=== PATIENT | female | born 1985 | race Two or more races ===

== ENCOUNTER 2019-03-14 21:56 | Inpatient (IN) | payer BC, OTHER ==
[~2019-03-14] VITALS: Ht 154.9 cm; Wt 75.3 kg
[2019-03-14] MEDS ORDERED: MORPHINE SULFATE INJ 4 MG/ML DISP.SYRIN ONE (23:16)
[2019-03-14] MEDS ORDERED: ONDANSETRON HCL/PF 4 MG/2 ML VIAL ONE (23:16)
[2019-03-14 23:21] LABS: BASOPHILS # (AUTO) 0.1 /CMM (0.0-0.2); BASOPHILS % (AUTO) 0.6 % (0.0-2.0); HEMATOCRIT 39 % (33-45); HEMOGLOBIN 13.2 g/dL (11.5-14.8); LYMPHOCYTES # (AUTO) 1.1 /CMM (0.8-4.8); LYMPHOCYTES % (AUTO) 12.3 % (20.0-44.0); MEAN CORPUSCULAR HGB CONC 34 g/dl (31.0-36.0); MEAN CORPUSCULAR VOLUME 91 fL (82-100); MONOCYTES # (AUTO) 1.2 /CMM (0.1-1.30); MONOCYTES % (AUTO) 13.5 % (2.0-12.0); NEUTROPHILS # (AUTO) 6.4 /CMM (1.8-8.9); NEUTROPHILS % (AUTO) 72.6 % (43.0-81.0); PLATELET COUNT (AUTO) 242 /CMM (150-450); RED BLOOD CELL COUNT(AUTO) 4.26 MIL/uL (4.0-5.2); WHITE BLOOD COUNT (AUTO) 8.8 K/uL (4.3-11.0)
[2019-03-14] MEDS ORDERED: ONDANSETRON HCL/PF 4 MG/2 ML VIAL IVP ONE (23:30)
[2019-03-14] MEDS ORDERED: IV NS 0.9% 1,000 ML BAG IV ONE (23:30)
[2019-03-14] MEDS ORDERED: MORPHINE SULFATE INJ 2 MG/ML DISP.SYRIN IV ONE (23:30)
[2019-03-14 23:34] LABS: ALBUMIN 3.7 g/dL (3.4-5.0); BILIRUBIN,TOTAL 0.3 mg/dL (0.2-1.0); CALCIUM, SERUM 8.8 mg/dL (8.5-10.1); CREATININE 0.6 mg/dL (0.6-1.3); TOTAL PROTEIN, SERUM 7.3 g/dL (6.4-8.2)
[2019-03-15 00:05] LABS: APPEARANCE,URINE Clear (CLEAR); BILIRUBIN,URINE Negative (NEGATIVE); BLOOD, URINE Trace-lysed Ery/uL (NEGATIVE); COLOR,URINE Yellow (YELLOW); KETONES,URINE Negative (NEGATIVE); LEUKOCYTE ESTERASE ,URINE Negative (NEGATIVE); NITRITE, URINE Negative (NEGATIVE); PROTEIN,URINE Negative (NEGATIVE); UGLUCOSE Negative (NEGATIVE); UROBILINOGEN,URINE 0.2 EU/dL (0.2)
[2019-03-15] MEDS ORDERED: KETOROLAC TROMETHAMINE INJ 30 MG/ML VIAL IV ONE (00:30)
[2019-03-15] MEDS ORDERED: KETOROLAC TROMETHAMINE INJ 60 MG/2 ML VIAL IM ONE (00:34)
[2019-03-15 00:49] LABS: BACTERIA,URINE Moderate /HPF (None Seen); SQUAMOUS EPITHELIAL CELL,UR Few /HPF (None Seen)
[2019-03-15] MEDS ORDERED: PIPERACILLIN /TAZOBACTAM 3.375 G in IV D5W 50 ML IV ONE (02:30)
[2019-03-15] MEDS ORDERED: PIPERACILLIN /TAZOBACTAM 3.375 G VIAL IV ONE (03:01)
[2019-03-15] MEDS ORDERED: MORPHINE SULFATE INJ 2 MG/ML DISP.SYRIN IV PRN (06:30)
[2019-03-15] MEDS ORDERED: ACETAMINOPHEN 325 MG TABLET PO PRN (06:30)
[2019-03-15] MEDS ORDERED: IV 1/2NS 1000 ML 1,000 ML IV PRN (06:30)
[2019-03-15] MEDS ORDERED: ONDANSETRON HCL/PF 4 MG/2 ML VIAL IVP PRN (06:30)
[2019-03-15] MEDS: PANTOPRAZOLE 40 MG TABLET.DR PO SCH (07:56)
[2019-03-15 08:00] VITALS: BP 108/64
[2019-03-15] MEDS ORDERED: PIPERACILLIN /TAZOBACTAM 3.375 G in IV D5W 50 ML IV SCH (12:00)
[2019-03-15 16:00] VITALS: BP 105/64
[2019-03-15] MEDS: PIPERACILLIN /TAZOBACTAM 3.375 G in IV D5W 100 ML IV SCH (17:37)
[2019-03-15 19:34] VITALS: BP 116/62
[2019-03-16] MEDS: PIPERACILLIN /TAZOBACTAM 3.375 G in IV D5W 100 ML IV SCH ×2 (00:57→09:44)
[2019-03-16] MEDS: PANTOPRAZOLE 40 MG TABLET.DR PO SCH (07:34)
[2019-03-16 08:00] VITALS: BP 112/69
[2019-03-16] MEDS ORDERED: CIPR500S3 PO (10:41)
[2019-03-16] MEDS ORDERED: METR500T PO (10:41)
[2019-03-16] MEDS ORDERED: ACET325T53 PO (10:42)
== END 2019-03-16 16:15 | disposition home or self-care (01) | DRG 392 ==
LOC: ER 22:02 → MEDSG2 03-15 02:48
DX: K57.92 Diverticulitis of intestine, part unspecified, without perforation or abscess without bleeding (principal); J98.11 Atelectasis; N13.30 Unspecified hydronephrosis
CPT/HCPCS: 36415; 76856-TC; 80048-TC; 80076-TC; 81000-TC; 83690-TC; 84703-TC; 85025-TC; 87040-TC; 87081-TC; 87086-TC; G0378; J1885; J2270; J2405; J2543; J3490; J7030; J7060

== ENCOUNTER 2020-09-17 16:14 | Emergency (ER) | payer BC, OTHER ==
[~2020-09-17] VITALS: Ht 162.6 cm; Wt 49.9 kg
[~2020-09-17 16:14] MED LIST: ACET325T53 PO; CIPR500S3 PO; METR500T PO
[2020-09-17 17:26] LABS: BILIRUBIN,URINE Negative (NEGATIVE); COLOR,URINE YELLOW (YELLOW); LEUKOCYTE ESTERASE ,URINE Negative (NEGATIVE); NITRITE, URINE Negative (NEGATIVE); PH,URINE 5.5 (5.0-8.0); PROTEIN,URINE Negative (NEGATIVE); UGLUCOSE Negative (NEGATIVE); UROBILINOGEN,URINE 0.2 EU/dL (0.2)
[2020-09-17] MEDS ORDERED: PANTOPRAZOLE 40 MG TABLET.DR PO ONE ×2 (17:30→17:31)
[2020-09-17 17:33] LABS: BACTERIA,URINE Moderate /HPF (None Seen); SQUAMOUS EPITHELIAL CELL,UR Few /HPF (None Seen)
[2020-09-17 17:34] LABS: BASOPHILS # (AUTO) 0.1 /CMM (0.0-0.2); BASOPHILS % (AUTO) 0.7 % (0.0-2.0); EOSINOPHILS % (AUTO) 0.8 % (0.0-6.0); HEMATOCRIT 39 % (33-45); HEMOGLOBIN 13.1 g/dL (11.5-14.8); LYMPHOCYTES # (AUTO) 1.4 /CMM (0.8-4.8); MEAN CORPUSCULAR HGB CONC 34 g/dl (31.0-36.0); MEAN CORPUSCULAR VOLUME 93 fL (82-100); MONOCYTES # (AUTO) 0.7 /CMM (0.1-1.30); MONOCYTES % (AUTO) 8.8 % (2.0-12.0); NEUTROPHILS # (AUTO) 5.4 /CMM (1.8-8.9); NEUTROPHILS % (AUTO) 70.7 % (43.0-81.0); PLATELET COUNT (AUTO) 222 /CMM (150-450); RED BLOOD CELL COUNT(AUTO) 4.19 MIL/uL (4.0-5.2); WHITE BLOOD COUNT (AUTO) 7.6 K/uL (4.3-11.0)
[2020-09-17 17:41] LABS: CALCIUM, SERUM 8.9 mg/dL (8.5-10.1); CREATININE 0.7 mg/dL (0.6-1.3)
[2020-09-17 17:47] LABS: ALBUMIN 3.9 g/dL (3.4-5.0); BILIRUBIN,DIRECT 0.1 mg/dL (0.0-0.2); BILIRUBIN,TOTAL 0.3 mg/dL (0.2-1.0); TOTAL PROTEIN, SERUM 7.7 g/dL (6.4-8.2)
--- NOTE | 2020-09-17 18:30 | NUR ---
Patient discharged to home in stable condition. Written and verbal after care instructions given. Patient verbalizes understanding of instruction.
[2020-09-17 18:31] VITALS: BP 131/82
== END 2020-09-17 18:31 | disposition home or self-care (01) ==
LOC: ER 16:16
DX: R10.13 Epigastric pain (principal); F17.200 Nicotine dependence, unspecified, uncomplicated; Z79.899 Other long term (current) drug therapy
CPT/HCPCS: 36415; 76705-TC; 80048-TC; 80076-TC; 81001; 83690-TC; 84703-TC; 85025-TC; 87086-TC

== ENCOUNTER 2021-02-20 14:57 | Emergency (ER) | payer BC ==
[~2021-02-20] VITALS: Ht 167.6 cm; Wt 86.2 kg
--- NOTE | 2021-02-20 15:35 | NUR ---
BIBS FROM HOME TO ER BED 6. AAOX4. NOT IN RESP DISTRESS. AMBULATORY. CAME IN FOR RUQ ABD PAIN STARTED YESTERDAY. RATES PAIN 5/10 PT ALSO REPORTS NAUSEA. PROVIDER WAS AT THE BEDSIDE FOR EVAL. ORDERS RECEIVED, NOTED AND CARRIED OUT.
[2021-02-20] MEDS ORDERED: ONDANSETRON HCL/PF 4 MG/2 ML VIAL ONE (15:47)
[2021-02-20] MEDS ORDERED: MORPHINE SULFATE INJ 4 MG/ML DISP.SYRIN ONE (15:47)
[2021-02-20] MEDS ORDERED: ONDANSETRON HCL/PF 4 MG/2 ML VIAL IVP ONE (16:00)
[2021-02-20] MEDS ORDERED: IV NS 0.9% 1,000 ML BAG IV ONE (16:00)
[2021-02-20] MEDS ORDERED: MORPHINE SULFATE INJ 2 MG/ML DISP.SYRIN IV ONE (16:00)
[2021-02-20 16:16] LABS: BASOPHILS # (AUTO) 0.1 /CMM (0.0-0.2); BASOPHILS % (AUTO) 0.8 % (0.0-2.0); EOSINOPHILS % (AUTO) 1.5 % (0.0-6.0); HEMATOCRIT 41 % (33-45); HEMOGLOBIN 13.6 g/dL (11.5-14.8); LYMPHOCYTES # (AUTO) 1.7 /CMM (0.8-4.8); MEAN CORPUSCULAR HGB CONC 33 g/dl (31.0-36.0); MEAN CORPUSCULAR VOLUME 93 fL (82-100); MONOCYTES # (AUTO) 0.6 /CMM (0.1-1.30); MONOCYTES % (AUTO) 8.9 % (2.0-12.0); NEUTROPHILS # (AUTO) 4.8 /CMM (1.8-8.9); NEUTROPHILS % (AUTO) 65.8 % (43.0-81.0); PLATELET COUNT (AUTO) 235 /CMM (150-450); RED BLOOD CELL COUNT(AUTO) 4.39 MIL/uL (4.0-5.2); WHITE BLOOD COUNT (AUTO) 7.3 K/uL (4.3-11.0)
[2021-02-20 16:17] LABS: ALBUMIN 4.2 g/dL (3.4-5.0); BILIRUBIN,DIRECT 0.1 mg/dL (0.0-0.2); BILIRUBIN,TOTAL 0.5 mg/dL (0.2-1.0); CREATININE 0.7 mg/dL (0.6-1.3); POTASSIUM 3.7 mmol/L (3.5-5.1); TOTAL PROTEIN, SERUM 7.9 g/dL (6.4-8.2)
[2021-02-20 16:29] LABS: BILIRUBIN,URINE NEGATIVE (NEGATIVE); COLOR,URINE YELLOW (YELLOW); LEUKOCYTE ESTERASE ,URINE NEGATIVE (NEGATIVE); NITRITE, URINE NEGATIVE (NEGATIVE); PH,URINE 5.5 (5.0-8.0); PROTEIN,URINE NEGATIVE (NEGATIVE); UGLUCOSE NEGATIVE (NEGATIVE); UROBILINOGEN,URINE 0.2 EU/dL (0.2)
[2021-02-20 16:36] LABS: BACTERIA,URINE 2+ /HPF (None Seen); SQUAMOUS EPITHELIAL CELL,UR Moderate /HPF (None Seen); WBC,URINE 0-2 /HPF (0-3)
[2021-02-20] MEDS ORDERED: TRAM50TA2 PO (17:07)
[2021-02-20] MEDS ORDERED: ONDA4TAB5 PO (17:07)
[2021-02-20] MEDS ORDERED: ACET-2605 PO (17:07)
--- NOTE | 2021-02-20 17:47 | NUR ---
Patient discharged to home in stable condition. Written and verbal after care instructions given. Patient verbalizes understanding of instruction.IV removed. Catheter intact and site benign. Pressure and 4x4 applied to site. No bleeding noted. Pt ambulatory with a steady gait
[2021-02-20 17:48] VITALS: BP 123/77
== END 2021-02-20 17:48 | disposition home or self-care (01) ==
LOC: ER 15:09
DX: R10.11 Right upper quadrant pain (principal); R11.0 Nausea; F17.200 Nicotine dependence, unspecified, uncomplicated; Z79.899 Other long term (current) drug therapy
CPT/HCPCS: 36415; 76705; 80048; 80076; 81001; 83690; 84703; 85025; 87086; 96361; 96374; 96375; 99284; J2270; J2405

== ENCOUNTER 2021-02-25 11:36 | Emergency (ER) | payer BC ==
[~2021-02-25] VITALS: Ht 167.6 cm; Wt 86.2 kg
[~2021-02-25 11:36] MED LIST changes: +ACET-2605 PO; +ONDA4TAB5 PO; +TRAM50TA2 PO
--- NOTE | 2021-02-25 11:47 | NUR ---
URINE SPECIMEN COLLECTED AND SENT TO LAB.
--- NOTE | 2021-02-25 11:55 | NUR ---
[facility] FOM HOME TO ER BED 7. AAOX4. NOT IN RESP DISTRESS. AMBULATORY ON STEADY GAIT. CAME IN FOR ABD PAIN X 1 WEEK 01/07. CAME IN LAST WEEK FOR THE SAME REASON BUT NO RELIEF. DENIES N/V/D. WAS AT THE BEDSIDE FOR EVAL. ORDERS RECEIVED AND NOTED
[2021-02-25 12:02] LABS: BASOPHILS # (AUTO) 0.1 K/uL (0.0-0.2); BASOPHILS % (AUTO) 0.9 % (0.0-2.0); EOSINOPHILS % (AUTO) 1.5 % (0.0-6.0); HEMATOCRIT 41 % (33-45); HEMOGLOBIN 13.6 g/dL (11.5-14.8); LYMPHOCYTES # (AUTO) 1.3 K/uL (0.8-4.8); LYMPHOCYTES % (AUTO) 20.8 % (20.0-44.0); MEAN CORPUSCULAR HGB CONC 33 g/dl (31.0-36.0); MEAN CORPUSCULAR VOLUME 92 fL (82-100); MONOCYTES # (AUTO) 0.6 K/uL (0.1-1.30); MONOCYTES % (AUTO) 9.1 % (2.0-12.0); NEUTROPHILS # (AUTO) 4.1 K/uL (1.8-8.9); NEUTROPHILS % (AUTO) 67.7 % (43.0-81.0); PLATELET COUNT (AUTO) 247 K/uL (150-450); RED BLOOD CELL COUNT(AUTO) 4.44 MIL/uL (4.0-5.2); WHITE BLOOD COUNT (AUTO) 6.1 K/uL (4.3-11.0)
[2021-02-25 12:10] LABS: BILIRUBIN,URINE Negative (NEGATIVE); COLOR,URINE YELLOW (YELLOW); LEUKOCYTE ESTERASE ,URINE Negative (NEGATIVE); NITRITE, URINE Negative (NEGATIVE); PH,URINE 7.5 (5.0-8.0); PROTEIN,URINE Trace mg/dl (NEGATIVE); UGLUCOSE Negative (NEGATIVE); UROBILINOGEN,URINE 0.2 EU/dL (0.2)
[2021-02-25 12:15] LABS: ALBUMIN 3.9 g/dL (3.4-5.0); BILIRUBIN,DIRECT 0.1 mg/dL (0.0-0.2); BILIRUBIN,TOTAL 0.4 mg/dL (0.2-1.0); CALCIUM, SERUM 9.2 mg/dL (8.5-10.1); CREATININE 0.6 mg/dL (0.6-1.3); POTASSIUM 4.3 mmol/L (3.5-5.1); TOTAL PROTEIN, SERUM 7.7 g/dL (6.4-8.2)
[2021-02-25 12:32] LABS: BACTERIA,URINE Few /HPF (None Seen); RBC,URINE 0-2 /HPF (0-2); WBC,URINE 0-2 /HPF (0-3)
[2021-02-25 13:58] VITALS: BP 107/68
== END 2021-02-25 13:59 | disposition home or self-care (01) ==
LOC: ER 11:39
DX: R10.84 Generalized abdominal pain (principal); R11.0 Nausea; F17.200 Nicotine dependence, unspecified, uncomplicated; Z79.899 Other long term (current) drug therapy
CPT/HCPCS: 36415; 80048-TC; 80076-TC; 81001; 83690-TC; 84703-TC; 85025-TC

== ENCOUNTER 2023-04-30 09:31 | Emergency (ER) | payer BC ==
[~2023-04-30] VITALS: Ht 154.9 cm; Wt 75.7 kg
[2023-04-30 10:45] LABS: BASOPHILS # (AUTO) 0.2 K/uL (0.0-0.2); EOSINOPHILS # (AUTO) 0.1 K/uL (0.0-0.7); EOSINOPHILS % (AUTO) 1.9 % (0.0-6.0); HEMATOCRIT 39 % (33-45); HEMOGLOBIN 13.1 g/dL (11.5-14.8); LYMPHOCYTES # (AUTO) 0.8 K/uL (0.8-4.8); LYMPHOCYTES % (AUTO) 10.9 % (20.0-44.0); MEAN CORPUSCULAR HEMOGLOBIN 30 PG (26.0-33.0); MEAN CORPUSCULAR HGB CONC 33 g/dl (31.0-36.0); MEAN CORPUSCULAR VOLUME 90 fL (82-100); MONOCYTES # (AUTO) 0.7 K/uL (0.1-1.30); MONOCYTES % (AUTO) 9.7 % (2.0-12.0); NEUTROPHILS # (AUTO) 5.2 K/uL (1.8-8.9); NEUTROPHILS % (AUTO) 74.5 % (43.0-81.0); PLATELET COUNT (AUTO) 199 K/uL (150-450); RED BLOOD CELL COUNT(AUTO) 4.37 MIL/uL (4.0-5.2); RED CELL DISTRIBUTION WIDTH 14.1 % (11.5-15.0)
[2023-04-30 11:17] LABS: APPEARANCE,URINE CLEAR (CLEAR); BILIRUBIN,URINE NEGATIVE (NEGATIVE); BLOOD, URINE NEGATIVE Ery/uL (NEGATIVE); COLOR,URINE YELLOW (YELLOW); KETONES,URINE NEGATIVE (NEGATIVE); LEUKOCYTE ESTERASE ,URINE NEGATIVE (NEGATIVE); NITRITE, URINE NEGATIVE (NEGATIVE); PROTEIN,URINE NEGATIVE (NEGATIVE); UGLUCOSE NEGATIVE (NEGATIVE); UROBILINOGEN,URINE 0.2 EU/dL (0.2)
[2023-04-30 11:18] LABS: ALBUMIN 3.6 g/dL (3.4-5.0); BILIRUBIN,DIRECT 0.1 mg/dL (0.0-0.2); BILIRUBIN,TOTAL 0.3 mg/dL (0.2-1.0); CALCIUM, SERUM 9.3 mg/dL (8.5-10.1); CREATININE 0.5 mg/dL (0.6-1.3); POTASSIUM 4.1 mmol/L (3.5-5.1); TOTAL PROTEIN, SERUM 7.5 g/dL (6.4-8.2)
[2023-04-30 11:20] LABS: PREGNANCY TEST URINE QUAL NEGATIVE (NEGATIVE)
[2023-04-30 15:35] VITALS: BP 128/81; TEMP 98; O2SAT 99
== END 2023-04-30 15:41 | disposition home or self-care (01) ==
LOC: ER 09:39
DX: R19.00 Intra-abdominal and pelvic swelling, mass and lump, unspecified site (principal); R10.2 Pelvic and perineal pain
CPT/HCPCS: 36415; 76856-TC; 80048-TC; 80076-TC; 84703-TC; 85025-TC; 87086-TC

== ENCOUNTER 2023-07-04 17:37 | Emergency (ER) | payer BC ==
[~2023-07-04] VITALS: Ht 154.9 cm; Wt 75.7 kg
[2023-07-04 18:23] LABS: APPEARANCE,URINE CLEAR (CLEAR); BILIRUBIN,URINE NEGATIVE (NEGATIVE); BLOOD, URINE 2+ Ery/uL (NEGATIVE); COLOR,URINE YELLOW (YELLOW); KETONES,URINE NEGATIVE (NEGATIVE); LEUKOCYTE ESTERASE ,URINE NEGATIVE (NEGATIVE); NITRITE, URINE NEGATIVE (NEGATIVE); PROTEIN,URINE TRACE mg/dl (NEGATIVE); UGLUCOSE NEGATIVE (NEGATIVE); UROBILINOGEN,URINE 0.2 EU/dL (0.2)
[2023-07-04 18:24] LABS: BASOPHILS # (AUTO) 0.1 K/uL (0.0-0.2); BASOPHILS % (AUTO) 0.7 % (0.0-2.0); EOSINOPHILS % (AUTO) 0.2 % (0.0-6.0); HEMATOCRIT 38 % (33-45); LYMPHOCYTES # (AUTO) 0.9 K/uL (0.8-4.8); LYMPHOCYTES % (AUTO) 9.8 % (20.0-44.0); MEAN CORPUSCULAR HEMOGLOBIN 30 PG (26.0-33.0); MEAN CORPUSCULAR HGB CONC 34 g/dl (31.0-36.0); MEAN CORPUSCULAR VOLUME 88 fL (82-100); MONOCYTES # (AUTO) 0.9 K/uL (0.1-1.30); MONOCYTES % (AUTO) 10.6 % (2.0-12.0); NEUTROPHILS # (AUTO) 6.9 K/uL (1.8-8.9); NEUTROPHILS % (AUTO) 78.7 % (43.0-81.0); PLATELET COUNT (AUTO) 277 K/uL (150-450); RED BLOOD CELL COUNT(AUTO) 4.32 MIL/uL (4.0-5.2); RED CELL DISTRIBUTION WIDTH 13.4 % (11.5-15.0); WHITE BLOOD COUNT (AUTO) 8.8 K/uL (4.3-11.0)
[2023-07-04 18:28] LABS: PREGNANCY TEST URINE QUAL NEGATIVE (NEGATIVE)
[2023-07-04] MEDS ORDERED: ONDANSETRON HCL/PF - ER 4 MG/2 ML VIAL IV ONE (18:30)
[2023-07-04] MEDS ORDERED: KETOROLAC TROMETHAMINE INJ 30 MG/ML VIAL IV ONE (18:30)
[2023-07-04] MEDS ORDERED: IV NS 0.9% 1,000 ML BAG IV ONE (18:30)
[2023-07-04] MEDS ORDERED: KETOROLAC TROMETHAMINE INJ 30 MG/ML VIAL ONE (18:31)
[2023-07-04] MEDS ORDERED: ONDANSETRON HCL/PF 4 MG/2 ML VIAL ONE (18:31)
[2023-07-04 18:35] LABS: ADD URINE CULTURE YES; BACTERIA,URINE Moderate /HPF (None Seen); SQUAMOUS EPITHELIAL CELL,UR Moderate /HPF (None Seen); WBC,URINE 0-2 /HPF (0-3)
[2023-07-04 18:37] LABS: ALBUMIN 3.2 g/dL (3.4-5.0); BILIRUBIN,DIRECT 0.1 mg/dL (0.0-0.2); BILIRUBIN,TOTAL 0.3 mg/dL (0.2-1.0); CALCIUM, SERUM 8.9 mg/dL (8.5-10.1); CREATININE 0.6 mg/dL (0.6-1.3); TOTAL PROTEIN, SERUM 7.5 g/dL (6.4-8.2)
[2023-07-04] MEDS ORDERED: SULF1TAB48 PO (19:50)
[2023-07-04] MEDS ORDERED: BENZ-13 PO (19:51)
[2023-07-04] MEDS ORDERED: GUAI1TBM19 PO (19:51)
[2023-07-04 20:09] VITALS: BP 126/70; TEMP 99; O2SAT 99
== END 2023-07-04 20:34 | disposition home or self-care (01) ==
LOC: ER 17:37
DX: K52.9 Noninfective gastroenteritis and colitis, unspecified (principal); R11.2 Nausea with vomiting, unspecified; R10.9 Unspecified abdominal pain; F17.210 Nicotine dependence, cigarettes, uncomplicated; Z79.899 Other long term (current) drug therapy
CPT/HCPCS: 99284; 96374; 96361; 96375; 99406; 85025; 80048; 87086; 83690; 80076; 84703; 81001; 36415; J1885; J2405; J7030

== ENCOUNTER 2024-10-07 14:42 | Emergency (ER) | payer BC, OTHER ==
[~2024-10-07] VITALS: Ht 154.9 cm; Wt 72.6 kg
[~2024-10-07 14:42] MED LIST changes: +BENZ-13 PO; +GUAI1TBM19 PO; +SULF1TAB48 PO
[2024-10-07] MEDS ORDERED: IBUP-1490 PO (15:32)
[2024-10-07] MEDS ORDERED: KETOROLAC TROMETHAMINE 15 MG/ML VIAL ONE (15:56)
[2024-10-07] MEDS: KETOROLAC TROMETHAMINE 15 MG/ML VIAL IM ONE (16:02)
[2024-10-07 16:06] VITALS: BP 110/72; TEMP 98.2
[2024-10-07 16:21] VITALS: O2SAT 98
== END 2024-10-07 16:22 | disposition home or self-care (01) ==
LOC: ER 14:50
DX: M54.59 Other low back pain (principal); F17.200 Nicotine dependence, unspecified, uncomplicated
CPT/HCPCS: 99283; 96372; J1885

== ENCOUNTER 2025-01-03 00:16 | Emergency (ER) | payer BC, OTHER ==
[~2025-01-03] VITALS: Ht 154.9 cm; Wt 72.6 kg
[~2025-01-03 00:16] MED LIST changes: +IBUP-1490 PO
[2025-01-03 01:56] LABS: BASOPHILS % (AUTO) 0.5 % (0.0-2.0); EOSINOPHILS # (AUTO) 0.1 K/uL (0.0-0.7); EOSINOPHILS % (AUTO) 1.4 % (0.0-6.0); HEMATOCRIT 39 % (33-45); HEMOGLOBIN 13.2 g/dL (11.5-14.8); LYMPHOCYTES # (AUTO) 1.8 K/uL (0.8-4.8); MEAN CORPUSCULAR HEMOGLOBIN 31 PG (26.0-33.0); MEAN CORPUSCULAR HGB CONC 34 g/dl (31.0-36.0); MEAN CORPUSCULAR VOLUME 90 fL (82-100); MONOCYTES % (AUTO) 9.8 % (2.0-12.0); NEUTROPHILS # (AUTO) 6.9 K/uL (1.8-8.9); NEUTROPHILS % (AUTO) 70.3 % (43.0-81.0); PLATELET COUNT (AUTO) 222 K/uL (150-450); RED CELL DISTRIBUTION WIDTH 13.8 % (11.5-15.0); WHITE BLOOD COUNT (AUTO) 9.8 K/uL (4.3-11.0)
[2025-01-03 02:03] LABS: APPEARANCE,URINE SLIGHTLY CLOUDY (CLEAR); BILIRUBIN,URINE NEGATIVE (NEGATIVE); BLOOD, URINE TRACE-INTA Ery/uL (NEGATIVE); COLOR,URINE YELLOW (YELLOW); KETONES,URINE NEGATIVE (NEGATIVE); LEUKOCYTE ESTERASE ,URINE NEGATIVE (NEGATIVE); NITRITE, URINE NEGATIVE (NEGATIVE); PROTEIN,URINE NEGATIVE (NEGATIVE); UGLUCOSE NEGATIVE (NEGATIVE); UROBILINOGEN,URINE 0.2 EU/dL (0.2)
[2025-01-03 02:08] LABS: ALBUMIN 3.6 g/dL (3.4-5.0); BILIRUBIN,DIRECT 0.1 mg/dL (0.0-0.2); BILIRUBIN,TOTAL 0.2 mg/dL (0.2-1.0); CALCIUM, SERUM 8.9 mg/dL (8.5-10.1); CREATININE 0.6 mg/dL (0.6-1.3); POTASSIUM 3.8 mmol/L (3.5-5.1); TOTAL PROTEIN, SERUM 7.1 g/dL (6.4-8.2)
[2025-01-03 02:10] LABS: PREGNANCY TEST URINE QUAL NEGATIVE (NEGATIVE)
[2025-01-03 02:12] LABS: BACTERIA,URINE Many /HPF (None Seen); SQUAMOUS EPITHELIAL CELL,UR Many /HPF (None Seen)
[2025-01-03 02:13] LABS: ADD URINE CULTURE YES
[2025-01-03] MEDS ORDERED: KETOROLAC TROMETHAMINE 15 MG/ML VIAL ONE (02:35)
[2025-01-03] MEDS: KETOROLAC TROMETHAMINE 15 MG/ML VIAL IM ONE (02:36)
[2025-01-03] MEDS ORDERED: DICY10CA37 PO (04:12)
[2025-01-03] MEDS ORDERED: TRAM50TA2 PO (04:12)
[2025-01-03] MEDS ORDERED: NAPR-1009 PO (04:12)
[2025-01-03] MEDS ORDERED: ACET-2605 PO (04:12)
[2025-01-03 04:20] VITALS: BP 109/61; TEMP 98.4; O2SAT 99
== END 2025-01-03 04:20 | disposition home or self-care (01) ==
LOC: ER 00:20
DX: R10.30 Lower abdominal pain, unspecified (principal); D25.9 Leiomyoma of uterus, unspecified; F17.200 Nicotine dependence, unspecified, uncomplicated; Z79.899 Other long term (current) drug therapy
CPT/HCPCS: 99283; 96372; 85025; 80048; 87086; 83690; 80076; 84703; 81001; 36415; J1885